=== PATIENT | female | born 1955 | race Two or more races ===

== ENCOUNTER → 2018-05-08 | Outpatient (CLI) | payer MEDICAID ==
[~2018-05-08] VITALS: Ht 157.5 cm; Wt 82.1 kg
[~2018-05-08] MED LIST: ACET-784 PO; ASPI81 PO; BRIM15DR8 OS; DSS100 PO; METF-445 PO; OXYC-38 PO; XALA2.5OS OD; [UNRECOGNIZED DRUG - CODE] OD
[2018-05-08 11:00] VITALS: BP 137/79
== END | disposition home or self-care (01) ==
LOC: HBOWC 10:17
PROVIDERS: ATTEND Surgery Plastic and Reconstructive Surgery
DX: T87.81 Dehiscence of amputation stump (principal); S91.104A Unspecified open wound of right lesser toe(s) without damage to nail, initial encounter; E11.51 Type 2 diabetes mellitus with diabetic peripheral angiopathy without gangrene; I10 Essential (primary) hypertension; E78.00 Pure hypercholesterolemia, unspecified; Z79.82 Long term (current) use of aspirin; Z79.84 Long term (current) use of oral hypoglycemic drugs; Y83.5 Amputation of limb(s) as the cause of abnormal reaction of the patient, or of later complication, without mention of misadventure at the time of the procedure; X58.XXXA Exposure to other specified factors, initial encounter; Y93.89 Activity, other specified; Y92.89 Other specified places as the place of occurrence of the external cause; Y99.8 Other external cause status
CPT/HCPCS: 11044; G0463